=== PATIENT | male | born 1990 | race Caucasian/White ===

== ENCOUNTER 2024-07-03 19:17 | Emergency (ER) | payer OTHER ==
[~2024-07-03] VITALS: Ht 175.3 cm; Wt 97.5 kg
[~2024-07-03 19:17] MED LIST: CODACE30 PO; PROM25 PO; SULTRIDS PO
[2024-07-03] MEDS ORDERED: Tetracaine HCl/Pf 0.5% Opth Soln 4 ml RIGHTEYE ONE (20:05)
[2024-07-03] MEDS ORDERED: Fluorescein Sod 1MG Opth Strips RIGHTEYE ONE (20:05)
[2024-07-03] MEDS ORDERED: Erythromycin 0.5% Opth Oint 1 gm RIGHTEYE ONE (21:05)
[2024-07-03] MEDS ORDERED: Ofloxacin 0.3% Opth Soln 5 ML RIGHTEYE ONE (21:05)
[2024-07-03] MEDS ORDERED: ERYT1OIN RIGHTEYE (21:06)
[2024-07-03] MEDS ORDERED: OCUFLOX510 RIGHTEYE (21:06)
== END 2024-07-03 21:30 | disposition home or self-care (01) ==
LOC: ER 19:17
DX: T15.01XA Foreign body in cornea, right eye, initial encounter (principal); W44.E0XA Non-magnetic metal object unspecified, entering into or through a natural orifice, initial encounter
CPT/HCPCS: 65220; 99283-25; A9270